=== PATIENT | female | born 1950 | race Caucasian/White ===

== ENCOUNTER 2022-03-09 13:26 | Emergency (ER) | payer MEDICARE, BC | END 2022-03-09 14:29 | disposition home or self-care (01) | LOC: JP.ED 13:26 | DX: N30.01 Acute cystitis with hematuria (principal); E78.00 Pure hypercholesterolemia, unspecified; Z79.899 Other long term (current) drug therapy; Z88.2 Allergy status to sulfonamides; Z88.8 Allergy status to other drugs, medicaments and biological substances | CPT/HCPCS: 81001; 87086; 99283 ==

== ENCOUNTER 2024-11-26 13:50 | Emergency (ER) | payer MEDICARE, BC ==
[2024-11-26] MEDS ORDERED: Sodium Chloride 0.9% 10 ML Syringe FLUSH PRN (14:15)
[2024-11-26 14:21] LABS: BASOPHILS ABSOLUTE AUTO 0.04 K/uL (0.00-0.10); BASOPHILS PERCENT AUTO 0.4 % (0.1-1.3); EOSINOPHILS ABSOLUTE AUTO 0.10 K/uL (0.00-0.40); EOSINOPHILS PERCENT AUTO 1.0 % (0.0-5.4); IMMATURE GRAN ABSOLUTE AUTO 0.12 K/uL (0.00-0.23); IMMATURE GRAN PERCENT AUTO 1.1 % (0.0-0.7); LYMPHOCYTES ABSOLUTE AUTO 2.26 K/uL (0.8-3.3); LYMPHOCYTES PERCENT AUTO 21.5 % (11.4-47.7); MONOCYTES ABSOLUTE AUTO 0.48 K/uL (0.20-0.90); MONOCYTES PERCENT AUTO 4.6 % (3.3-12.6); NEUTROPHILS ABSOLUTE AUTO 7.50 K/uL (1.0-7.6); NEUTROPHILS PERCENT AUTO 71.4 % (40.0-78.1); PLATELET COUNT,PLT 266 K/uL (130-375); RED BLOOD CELL COUNT 4.57 M/uL (3.77-5.24); WHITE BLOOD CELL COUNT,WBC 10.5 K/uL (3.2-11.0)
[2024-11-26] MEDS: Nitroglycerin 0.4 MG Tab.SL SL PRN (14:34)
[2024-11-26 14:36] LABS: BLOOD UREA NITROGEN,BUN 14.0 mg/dL (7-18); CARBON DIOXIDE,CO2 29.0 mmol/L (21-32); CHLORIDE,CL 106.0 mmol/L (100-108); CREATININE 0.8 mg/dL (0.6-1.0); EST CRCL DRUG DOSING (CG) 52.58 mL/min; ESTIMATED GFR 78.0 mL/min (>60); GLUCOSE RANDOM 142.0 mg/dL (74-106); POTASSIUM,K 3.9 mmol/L (3.6-5.2); SODIUM,NA 145.0 mmol/L (140-148); TROPONIN I HIGH SENSITIVITY 8.3 pg/mL (<=60.3)
[2024-11-26] MEDS: Alum Hydrox/Mag Hydrox/Simeth 15 ML, Lidocaine 2% 15 ML PO ONE (16:14)
== END 2024-11-26 18:33 | disposition home or self-care (01) ==
LOC: JP.ED 13:50
DX: R07.89 Other chest pain (principal); I11.0 Hypertensive heart disease with heart failure; I50.9 Heart failure, unspecified; E78.00 Pure hypercholesterolemia, unspecified; Z88.1 Allergy status to other antibiotic agents; Z88.2 Allergy status to sulfonamides; Z79.899 Other long term (current) drug therapy
CPT/HCPCS: 36415; 71045; 80048; 84484; 85025; 93005; 99285; A9270